=== PATIENT | male | born 1965 | race Caucasian/White ===

== ENCOUNTER 2018-01-15 08:20 | Emergency (ER) | payer BC ==
[~2018-01-15] VITALS: Ht 180.3 cm; Wt 102.3 kg
[2018-01-15 08:22] VITALS: BP 148/93
[2018-01-15] MEDS ORDERED: ondansetron 4mg rapidly disintigrating tab PO ONE (09:25)
[2018-01-15] MEDS ORDERED: diphenhydrAMINE 50 mg/ml inj IV ONE (09:25)
[2018-01-15] MEDS ORDERED: normal saline 1000ML IV soln IVB ONE (09:25)
[2018-01-15] MEDS ORDERED: gabapentin 300mg capsule PO ONE (09:25)
[2018-01-15 09:45] LABS: ANION GAP 12 (8-16); BLOOD UREA NITROGEN 10 MG/DL (7-18); BUN/CREATININE RATIO 10.2 (5.4-32.0); CALCIUM 8.7 MG/DL (8.5-10.1); CHLORIDE 101 MMOL/L (99-107); CREATININE 0.98 MG/DL (0.60-1.10); GLUCOSE 139 MG/DL (70-104); POTASSIUM 3.9 MMOL/L (3.5-5.1); SODIUM 139 MMOL/L (135-145); TOTAL CARBON DIOXIDE 25.9 MMOL/L (24-32); eGFR 80 ML/MIN
[2018-01-15] MEDS ORDERED: GABA-532 PO (10:05)
[2018-01-15] MEDS ORDERED: ONDA4TAB6 PO (10:05)
== END 2018-01-15 10:35 | disposition home or self-care (01) ==
LOC: ER 08:20
DX: F10.10 Alcohol abuse, uncomplicated (principal); R11.2 Nausea with vomiting, unspecified; R19.7 Diarrhea, unspecified; Z79.899 Other long term (current) drug therapy; Y90.9 Presence of alcohol in blood, level not specified
CPT/HCPCS: 36415; 80048; 96361; 96374; 99284; J1200; J7030

== ENCOUNTER 2018-08-07 17:19 | Emergency (ER) | payer BC ==
[~2018-08-07 17:19] MED LIST: GABA-532 PO; ONDA4TAB6 PO
== END 2018-08-07 19:36 | disposition left against medical advice (07) ==
LOC: ER 17:19
DX: F10.239 Alcohol dependence with withdrawal, unspecified (principal); Z53.21 Procedure and treatment not carried out due to patient leaving prior to being seen by health care provider

== ENCOUNTER 2019-03-09 21:21 | Emergency (ER) | payer BC ==
[~2019-03-09] VITALS: Ht 180.3 cm; Wt 93.0 kg
[2019-03-09 21:47] LABS: BASOPHILS % (AUTO) 0.1 % (0-1); EOSINOPHILS % (AUTO) 0 % (0-6); HEMATOCRIT 44.3 % (42.0-52.0); LYMPHOCYTES # (AUTO) 0.7 X10'3 (1.1-4.8); LYMPHOCYTES % (AUTO) 4.6 % (21-51); MEAN CORPUSCULAR HEMOGLOBIN 32.4 PG (27.0-31.0); MEAN CORPUSCULAR VOLUME 95.3 FL (78-98); MEAN PLATELET VOLUME 7.4 FL (7.4-10.4); MONOCYTES # (AUTO) 0.2 X10'3 (0-0.9); MONOCYTES % (AUTO) 1.5 % (2-12); NEUTROPHILS % (AUTO) 93.8 % (42-75); PLATELET COUNT 164 X10'3 (140-440); RED BLOOD COUNT 4.64 X10'6 (4.70-6.10); RED CELL DISTRIBUTION WIDTH 13.9 % (11.5-14.5); WHITE BLOOD COUNT 14.9 X10'3 (4.5-11.0)
[2019-03-09 21:57] LABS: ALANINE AMINOTRANSFERASE 60 U/L (12-78); ALBUMIN/GLOBULIN RATIO 1.1 (1.1-1.5); ALKALINE PHOSPHATASE 69 IU/L (46-116); ANION GAP 12 (8-16); ASPARTATE AMINO TRANSFERASE 49 U/L (10-37); BILIRUBIN,TOTAL 0.5 MG/DL (0.1-1.0); BLOOD UREA NITROGEN 12 MG/DL (7-18); CHLORIDE 102 MMOL/L (99-107); CREATININE 0.86 MG/DL (0.60-1.10); GLUCOSE 178 MG/DL (70-104); POTASSIUM 4.2 MMOL/L (3.5-5.1); SODIUM 139 MMOL/L (135-145); TOTAL PROTEIN 7.7 G/DL (6.4-8.2); eGFR > 90 ML/MIN
[2019-03-09 21:58] LABS: PARTIAL THROMBOPLASTIN TIME 26 SECONDS (22-32)
[2019-03-09 22:00] LABS: TROPONIN I < 0.04 NG/ML (0.0-0.05)
[2019-03-09 22:15] LABS: CLARITY,URINE CLEAR (Clear); COLOR,URINE YELLOW (Yellow); GLUCOSE, URINE 500 mg/dl (Neg); KETONES,URINE NEGATIVE (Neg); LEUKOCYTE ESTERASE ,URINE NEGATIVE (Neg); NITRITES, URINE NEGATIVE (Neg); OCCULT BLOOD,URINE NEGATIVE (Neg); PH,URINE 5.5 (4.8-8.0); PROTEIN,URINE NEGATIVE (Neg); UROBILINOGEN,URINE 0.2 E.U/dL (0.2-1.0)
[2019-03-09 22:17] LABS: UA COLLECTION TYPE CLN CATCH MIDSTREAM
--- NOTE | 2019-03-09 22:30 | NUR ---
PATIENT IS ASKING FOR WATER. PATIENT WAS EDUCATED ON STROKE PROTOCOL AND WHY HE IS CURRENTLY NPO
--- NOTE | 2019-03-09 22:32 | NUR ---
PATIENT CONTINUES TO ASK STAFF FOR WATER AND GETTING [employer]OP[employer] AGGRESSIVE WITH HIS REQUESTS.
[2019-03-09 22:41] LABS: URINE AMPHETAMINE SCREEN NEGATIVE (Neg); URINE BARBITUATE SCREEN NEGATIVE (Neg); URINE BENZODIAZEPINES SCREEN NEGATIVE (Neg); URINE CANNABINOID SCREEN POSITIVE (Neg); URINE COCAINE SCREEN NEGATIVE (Neg); URINE METHADONE SCREEN NEGATIVE (Neg); URINE OPIATE SCREEN NEGATIVE (Neg); URINE PHENCYCLIDINE SCREEN NEGATIVE (Neg)
[2019-03-09] MEDS ORDERED: HYDROcodone/acetaminophen 5mg/325mg tablet PO PRN (23:00)
[2019-03-09] MEDS ORDERED: magnesium hydroxide 30ml (MOM) UD suspension PO PRN (23:00)
[2019-03-09] MEDS ORDERED: acetaminophen 325mg tablet PO PRN (23:00)
[2019-03-09] MEDS ORDERED: ondansetron/PF 4mg/2ml inj IV PRN (23:00)
[2019-03-09] MEDS ORDERED: normal saline 1000ml 1,000 ML IV SCH (23:00)
[2019-03-09] MEDS ORDERED: mag hydrox/Alum hydrox/simeth 30ml oral suspension PO PRN (23:00)
[2019-03-09] MEDS ORDERED: morphine 2 MG/ML inj. syringe IV PRN ×2 (23:00)
[2019-03-09 23:05] LABS: ETHANOL 0.333 GM/DL (0.0-0.010)
[2019-03-09] MEDS ORDERED: propofol 10mg/ml 20ml vial IV ONE (23:20)
[2019-03-09 23:36] LABS: CHOL/HDL RATIO 3.4 (0.00-4.99); CHOLESTEROL 249 MG/DL (0-200); HDL CHOLESTEROL 74 MG/DL (35-60); LDL CHOLESTEROL 152 MG/DL (50-100); TRIGLYCERIDES 130 MG/DL (20-135)
[2019-03-10 00:32] VITALS: BP 153/96
[2019-03-10] MEDS ORDERED: enoxaparin 40mg/0.4ml syringe SUBCUT SCH (08:00)
[2019-03-10] MEDS ORDERED: aspirin 325mg tablet, delayed-release (Ecotrin) PO SCH (08:00)
== END 2019-03-10 00:26 | disposition home or self-care (01) ==
LOC: ER 21:21
DX: S43.005A Unspecified dislocation of left shoulder joint, initial encounter (principal); F10.10 Alcohol abuse, uncomplicated; X58.XXXA Exposure to other specified factors, initial encounter; Y93.01 Activity, walking, marching and hiking; Y92.89 Other specified places as the place of occurrence of the external cause; Y99.8 Other external cause status
CPT/HCPCS: 23650; 36415; 70450; 71045; 73020; 73060; 80053; 80061; 80305; 80320; 81003; 82948; 83036; 84484; 85025; 85610; 85651; 85730; 86885; 86900; 86901; 93005; 99152; 99285; J2704

== ENCOUNTER 2020-02-08 03:27 | Emergency (ER) | payer BC ==
[~2020-02-08] VITALS: Ht 180.3 cm; Wt 97.0 kg
[2020-02-08] MEDS ORDERED: ondansetron/PF 4mg/2ml inj IV ONE (03:40)
[2020-02-08] MEDS ORDERED: magnesium 2GM in 50ml NS 50 ML IV ONE (03:40)
[2020-02-08] MEDS ORDERED: phenobarbital inj 260 MG in normal saline 100ml IV soln 100 ML IV ONE (03:40)
[2020-02-08] MEDS ORDERED: normal saline 1000ML IV soln IVB ONE (03:40)
[2020-02-08] MEDS ORDERED: thiamine inj. 100 MG in normal saline 100ml IV soln 99 ML IV ONE (03:40)
[2020-02-08] MEDS ORDERED: famotidine/PF 10 mg/ml inj IV ONE (03:50)
[2020-02-08] MEDS ORDERED: pantoprazole 40 MG vial IV ONE (03:50)
[2020-02-08] MEDS ORDERED: thiamine inj. 100 MG in normal saline 100ml IV soln 100 ML IV ONE (04:10)
[2020-02-08 04:17] LABS: ALANINE AMINOTRANSFERASE 73 U/L (12-78); ALBUMIN 4.1 G/DL (3.4-5.0); ALBUMIN/GLOBULIN RATIO 1.1 (1.1-1.5); ALKALINE PHOSPHATASE 69 IU/L (46-116); ANION GAP 18 (8-16); BLOOD UREA NITROGEN 9 MG/DL (7-18); BUN/CREATININE RATIO 8.8 (5.4-32.0); CALCIUM 9.3 MG/DL (8.5-10.1); CHLORIDE 99 MMOL/L (99-107); CREATININE 1.02 MG/DL (0.60-1.10); ETHANOL 0.043 GM/DL (0.0-0.010); GLUCOSE 176 MG/DL (70-104); MAGNESIUM 1.9 MG/DL (1.5-2.4); SODIUM 138 MMOL/L (135-145); TOTAL CARBON DIOXIDE 21.2 MMOL/L (24-32); eGFR 76 ML/MIN
[2020-02-08 04:18] LABS: ASPARTATE AMINO TRANSFERASE 104 U/L (10-37); POTASSIUM 4.3 MMOL/L (3.5-5.1)
[2020-02-08 04:28] LABS: BASOPHILS % (AUTO) 0.4 % (0-1); EOSINOPHILS % (AUTO) 0.1 % (0-6); HEMATOCRIT 45.8 % (42.0-52.0); LYMPHOCYTES # (AUTO) 1.5 X10'3 (1.1-4.8); LYMPHOCYTES % (AUTO) 19.1 % (21-51); MEAN CORPUSCULAR HEMOGLOBIN 33.7 PG (27.0-31.0); MEAN CORPUSCULAR HGB CONC 34.8 g/dL (33.0-36.5); MEAN CORPUSCULAR VOLUME 96.8 FL (78-98); MEAN PLATELET VOLUME 8.4 FL (7.4-10.4); MONOCYTES # (AUTO) 0.7 X10'3 (0-0.9); MONOCYTES % (AUTO) 8.8 % (2-12); NEUTROPHILS # (AUTO) 5.6 X10'3 (1.8-7.7); NEUTROPHILS % (AUTO) 71.6 % (42-75); PLATELET COUNT 118 X10'3 (140-440); RED BLOOD COUNT 4.73 X10'6 (4.70-6.10); RED CELL DISTRIBUTION WIDTH 15.8 % (11.5-14.5); WHITE BLOOD COUNT 7.9 X10'3 (4.5-11.0)
[2020-02-08] MEDS ORDERED: phenobarbital inj 130 MG in normal saline 100ml IV soln 100 ML IV ONE (04:35)
[2020-02-08] MEDS ORDERED: ONDA4TAB6 PO ×2 (04:35→05:39)
[2020-02-08 05:30] VITALS: BP 144/85
== END 2020-02-08 06:20 | disposition home or self-care (01) ==
LOC: ER 03:28
DX: F10.220 Alcohol dependence with intoxication, uncomplicated (principal); K29.20 Alcoholic gastritis without bleeding; R73.9 Hyperglycemia, unspecified; R74.0 Nonspecific elevation of levels of transaminase and lactic acid dehydrogenase [LDH]; R06.02 Shortness of breath; R10.13 Epigastric pain; R11.2 Nausea with vomiting, unspecified; Z79.899 Other long term (current) drug therapy; Y90.9 Presence of alcohol in blood, level not specified
CPT/HCPCS: 36415; 80053; 80320; 83735; 85025; 93005; 96361; 96365; 96368; 96375; 96376; 99284; C9113; J2405; J3411; J3475; J3490; J7030

== ENCOUNTER 2020-08-19 06:17 | Emergency (ER) | payer BC ==
[~2020-08-19] VITALS: Ht 180.3 cm; Wt 100.0 kg
[2020-08-19] MEDS: pantoprazole 40 MG vial IV ONE (06:40)
[2020-08-19] MEDS: ondansetron/PF 4mg/2ml inj IV ONE (06:40)
[2020-08-19] MEDS: normal saline 1000ML IV soln IVB ONE (06:40)
[2020-08-19 06:42] LABS: BASOPHILS % (AUTO) 0.4 % (0-1); EOSINOPHILS % (AUTO) 0 % (0-6); HEMATOCRIT 45.5 % (42.0-52.0); HEMOGLOBIN 15.4 g/dl (14.0-17.9); LYMPHOCYTES % (AUTO) 11.6 % (21-51); MEAN CORPUSCULAR HEMOGLOBIN 31.5 PG (27.0-31.0); MEAN CORPUSCULAR HGB CONC 33.8 g/dL (33.0-36.5); MEAN CORPUSCULAR VOLUME 93.1 FL (78-98); MEAN PLATELET VOLUME 7.3 FL (7.4-10.4); MONOCYTES # (AUTO) 0.4 X10'3 (0-0.9); MONOCYTES % (AUTO) 4.6 % (2-12); NEUTROPHILS # (AUTO) 7.4 X10'3 (1.8-7.7); NEUTROPHILS % (AUTO) 83.4 % (42-75); PLATELET COUNT 244 X10'3 (140-440); RED BLOOD COUNT 4.89 X10'6 (4.70-6.10); RED CELL DISTRIBUTION WIDTH 14.4 % (11.5-14.5); WHITE BLOOD COUNT 8.9 X10'3 (4.5-11.0)
[2020-08-19 06:54] LABS: ALANINE AMINOTRANSFERASE 48 U/L (12-78); ALBUMIN 4.1 G/DL (3.4-5.0); ALBUMIN/GLOBULIN RATIO 1.1 (1.1-1.5); ALKALINE PHOSPHATASE 97 IU/L (46-116); ANION GAP 13 (8-16); ASPARTATE AMINO TRANSFERASE 35 U/L (10-37); BILIRUBIN,TOTAL 0.9 MG/DL (0.1-1.0); BLOOD UREA NITROGEN 10 MG/DL (7-18); CALCIUM 8.8 MG/DL (8.5-10.1); CHLORIDE 102 MMOL/L (99-107); GLUCOSE 212 MG/DL (70-104); LIPASE 96 U/L (73-393); MAGNESIUM 1.6 MG/DL (1.5-2.4); POTASSIUM 3.8 MMOL/L (3.5-5.1); SODIUM 140 MMOL/L (135-145); TOTAL CARBON DIOXIDE 25.4 MMOL/L (24-32); TOTAL PROTEIN 7.8 G/DL (6.4-8.2); eGFR 77 ML/MIN
[2020-08-19] MEDS: gabapentin 300mg capsule PO ONE (07:17)
[2020-08-19] MEDS ORDERED: GABA300C PO (07:28)
[2020-08-19 08:00] VITALS: BP 164/103
== END 2020-08-19 08:02 | disposition home or self-care (01) ==
LOC: ER 06:17
DX: F10.139 Alcohol abuse with withdrawal, unspecified (principal); E16.2 Hypoglycemia, unspecified; R10.10 Upper abdominal pain, unspecified; Z98.890 Other specified postprocedural states; Z79.899 Other long term (current) drug therapy; Y90.9 Presence of alcohol in blood, level not specified
CPT/HCPCS: 36415; 80053; 83690; 83735; 85025; 85610; 96361; 96374; 96375; 99284; C9113; J2405; J7030

== ENCOUNTER 2020-09-23 13:15 | Inpatient (IN) | payer BC ==
[~2020-09-23] VITALS: Ht 177.8 cm; Wt 92.4 kg
[~2020-09-23 13:15] MED LIST changes: +GABA300C PO
[2020-09-23] MEDS ORDERED: LORazepam 2 mg/ml vial IV ONE (13:35)
[2020-09-23] MEDS ORDERED: normal saline 1000ML IV soln IV ONE (13:35)
[2020-09-23] MEDS ORDERED: folic acid 1mg/0.2ml inj IV ONE (13:35)
[2020-09-23] MEDS ORDERED: thiamine 100mg/ml 2ml inj. IV ONE (13:35)
[2020-09-23] MEDS ORDERED: magnesium 2GM in 50ml NS 50 ML IV ONE (13:35)
[2020-09-23 14:21] LABS: BASOPHILS % (AUTO) 0.2 % (0-1); EOSINOPHILS % (AUTO) 0 % (0-6); HEMOGLOBIN 16.7 g/dl (14.0-17.9); LYMPHOCYTES # (AUTO) 0.9 X10'3 (1.1-4.8); LYMPHOCYTES % (AUTO) 4.5 % (21-51); MEAN CORPUSCULAR HEMOGLOBIN 30.9 PG (27.0-31.0); MEAN CORPUSCULAR HGB CONC 33.5 g/dL (33.0-36.5); MEAN CORPUSCULAR VOLUME 92.3 FL (78-98); MEAN PLATELET VOLUME 7.8 FL (7.4-10.4); MONOCYTES # (AUTO) 0.5 X10'3 (0-0.9); MONOCYTES % (AUTO) 2.5 % (2-12); NEUTROPHILS # (AUTO) 18.3 X10'3 (1.8-7.7); NEUTROPHILS % (AUTO) 92.8 % (42-75); PLATELET COUNT 275 X10'3 (140-440); RED BLOOD COUNT 5.41 X10'6 (4.70-6.10); RED CELL DISTRIBUTION WIDTH 14.1 % (11.5-14.5); WHITE BLOOD COUNT 19.7 X10'3 (4.5-11.0)
[2020-09-23 14:33] LABS: ALANINE AMINOTRANSFERASE 75 U/L (12-78); ALBUMIN 4.4 G/DL (3.4-5.0); ALBUMIN/GLOBULIN RATIO 1.1 (1.1-1.5); ALKALINE PHOSPHATASE 107 IU/L (46-116); ANION GAP 29 (8-16); ASPARTATE AMINO TRANSFERASE 47 U/L (10-37); BILIRUBIN,TOTAL 1.1 MG/DL (0.1-1.0); BLOOD UREA NITROGEN 16 MG/DL (7-18); BUN/CREATININE RATIO 10.3 (5.4-32.0); CHLORIDE 98 MMOL/L (99-107); CREATININE 1.55 MG/DL (0.60-1.10); ETHANOL < 0.010 GM/DL (0.0-0.010); GLUCOSE 247 MG/DL (70-104); POTASSIUM 3.1 MMOL/L (3.5-5.1); SODIUM 140 MMOL/L (135-145); TOTAL PROTEIN 8.4 G/DL (6.4-8.2); eGFR 47 ML/MIN
[2020-09-23 14:34] LABS: TOTAL CARBON DIOXIDE 13.3 MMOL/L (24-32)
[2020-09-23] MEDS ORDERED: potassium Cl 10 mEq/100mL bag IV ONE (14:40)
[2020-09-23] MEDS ORDERED: CefTRIAXone 2gm/D5W 50ml BAG 50 ML IV ONE (14:50)
[2020-09-23 14:58] LABS: LIPASE 72 U/L (73-393)
[2020-09-23] MEDS ORDERED: famotidine/PF 10 mg/ml inj IV ONE (15:45)
[2020-09-23] MEDS ORDERED: cloNIDine 0.1 mg tablet PO ONE ×2 (15:55→16:15)
[2020-09-23] MEDS ORDERED: NO HOME MEDS (16:00)
[2020-09-23] MEDS ORDERED: metoclopramide 5 mg/ml inj IV ONE (16:15)
[2020-09-23] MEDS ORDERED: magnesium hydroxide 30ml (MOM) UD suspension PO PRN (16:40)
[2020-09-23] MEDS ORDERED: acetaminophen 325mg tablet PO PRN ×2 (16:40)
[2020-09-23] MEDS ORDERED: morphine 4 MG/ML inj SYRINge IV PRN (16:40)
[2020-09-23] MEDS ORDERED: ondansetron/PF 4mg/2ml inj IV PRN (16:40)
[2020-09-23] MEDS ORDERED: thiamine inj. 100 MG in normal saline 100ml IV soln 100 ML IV ONE (16:50)
[2020-09-23] MEDS: normal saline 1000ml 1,000 ML IV SCH (18:58)
--- NOTE | 2020-09-23 19:28 | NUR ---
Pt awake and given ice chips as requested. Pt updated with plan of care and is awaiting in patient room assignment.
[2020-09-23 20:00] VITALS: BP 141/91
[2020-09-23 21:00] VITALS: BP 170/101
[2020-09-23] MEDS: enoxaparin 40mg/0.4ml syringe SQ SCH (22:08)
[2020-09-23 22:23] LABS: BASOPHILS % (AUTO) 0.1 % (0-1); EOSINOPHILS % (AUTO) 0 % (0-6); HEMATOCRIT 41.7 % (42.0-52.0); HEMOGLOBIN 14.1 g/dl (14.0-17.9); LYMPHOCYTES # (AUTO) 0.8 X10'3 (1.1-4.8); LYMPHOCYTES % (AUTO) 4.1 % (21-51); MEAN CORPUSCULAR HEMOGLOBIN 30.9 PG (27.0-31.0); MEAN CORPUSCULAR HGB CONC 33.7 g/dL (33.0-36.5); MEAN CORPUSCULAR VOLUME 91.6 FL (78-98); MEAN PLATELET VOLUME 8.1 FL (7.4-10.4); MONOCYTES # (AUTO) 0.6 X10'3 (0-0.9); MONOCYTES % (AUTO) 3.3 % (2-12); NEUTROPHILS # (AUTO) 17.3 X10'3 (1.8-7.7); NEUTROPHILS % (AUTO) 92.5 % (42-75); PLATELET COUNT 174 X10'3 (140-440); RED BLOOD COUNT 4.56 X10'6 (4.70-6.10); RED CELL DISTRIBUTION WIDTH 13.9 % (11.5-14.5); WHITE BLOOD COUNT 18.7 X10'3 (4.5-11.0)
[2020-09-23 22:37] LABS: ALBUMIN 3.4 G/DL (3.4-5.0); ANION GAP 11 (8-16); BLOOD UREA NITROGEN 13 MG/DL (7-18); BUN/CREATININE RATIO 15.3 (5.4-32.0); CALCIUM 7.6 MG/DL (8.5-10.1); CHLORIDE 103 MMOL/L (99-107); CREATININE 0.85 MG/DL (0.60-1.10); GLUCOSE 141 MG/DL (70-104); POTASSIUM 3.7 MMOL/L (3.5-5.1); SODIUM 137 MMOL/L (135-145); TOTAL CARBON DIOXIDE 22.7 MMOL/L (24-32); eGFR > 90 ML/MIN
[2020-09-23 23:00] VITALS: BP 152/88
[2020-09-23] MEDS: LORazepam 2 mg/ml vial IV PRN (23:00)
[2020-09-23] MEDS: morphine 2 MG/ML inj. syringe IV PRN (23:04)
[2020-09-24] VITALS (18 sets, daily range): BP systolic 143–171; BP diastolic 84–104
[2020-09-24] MEDS: normal saline 1000ml 1,000 ML IV SCH (02:45)
[2020-09-24] MEDS: morphine 2 MG/ML inj. syringe IV PRN ×3 (03:44→21:40)
[2020-09-24 06:06] LABS: BASOPHILS % (AUTO) 0.1 % (0-1); EOSINOPHILS % (AUTO) 0 % (0-6); HEMATOCRIT 42.3 % (42.0-52.0); HEMOGLOBIN 14.3 g/dl (14.0-17.9); LYMPHOCYTES # (AUTO) 1.5 X10'3 (1.1-4.8); LYMPHOCYTES % (AUTO) 8.3 % (21-51); MEAN CORPUSCULAR HEMOGLOBIN 31.2 PG (27.0-31.0); MEAN CORPUSCULAR HGB CONC 33.9 g/dL (33.0-36.5); MEAN CORPUSCULAR VOLUME 92.1 FL (78-98); MEAN PLATELET VOLUME 7.9 FL (7.4-10.4); MONOCYTES # (AUTO) 1.1 X10'3 (0-0.9); NEUTROPHILS # (AUTO) 15.6 X10'3 (1.8-7.7); NEUTROPHILS % (AUTO) 85.6 % (42-75); PLATELET COUNT 169 X10'3 (140-440); RED BLOOD COUNT 4.59 X10'6 (4.70-6.10); RED CELL DISTRIBUTION WIDTH 14.2 % (11.5-14.5); WHITE BLOOD COUNT 18.3 X10'3 (4.5-11.0)
[2020-09-24 06:16] LABS: ALANINE AMINOTRANSFERASE 56 U/L (12-78); ALBUMIN 3.6 G/DL (3.4-5.0); ALBUMIN/GLOBULIN RATIO 1.1 (1.1-1.5); ALKALINE PHOSPHATASE 95 IU/L (46-116); ANION GAP 7 (8-16); ASPARTATE AMINO TRANSFERASE 34 U/L (10-37); BILIRUBIN,TOTAL 1.5 MG/DL (0.1-1.0); BLOOD UREA NITROGEN 11 MG/DL (7-18); BUN/CREATININE RATIO 15.1 (5.4-32.0); CALCIUM 8.2 MG/DL (8.5-10.1); CHLORIDE 105 MMOL/L (99-107); CREATININE 0.73 MG/DL (0.60-1.10); GLUCOSE 122 MG/DL (70-104); POTASSIUM 3.4 MMOL/L (3.5-5.1); SODIUM 139 MMOL/L (135-145); TOTAL CARBON DIOXIDE 26.7 MMOL/L (24-32); TOTAL PROTEIN 6.9 G/DL (6.4-8.2); eGFR > 90 ML/MIN
[2020-09-24 06:19] LABS: AMYLASE 49 U/L (25-115); LIPASE 59 U/L (73-393); MAGNESIUM 2.2 MG/DL (1.5-2.4); PHOSPHORUS 2.9 MG/DL (2.3-4.5); TROPONIN I < 0.04 NG/ML (0.0-0.05)
[2020-09-24] MEDS ORDERED: thiamine inj. 100 MG in normal saline 100ml IV soln 100 ML IV SCH (08:00)
[2020-09-24] MEDS ORDERED: folic acid inj. 2 MG, thiamine inj. 100 MG, MVI, adult No.4 with vit. K 10 ML in dextro... IV SCH ×4 (08:00)
[2020-09-24] MEDS ORDERED: pantoprazole 40 MG vial IV SCH (08:00)
[2020-09-24] MEDS ORDERED: folic acid 1mg/0.2ml inj IV SCH (08:00)
[2020-09-24] MEDS ORDERED: MULTIVIT-MIN/FERROUS GLUCONATE 9 MG/15 ML LIQUID PO SCH (08:00)
[2020-09-24] MEDS ORDERED: metoprolol tartrate 1mg/ml inj IV PRN (11:10)
--- NOTE | 2020-09-24 11:54 | NUR ---
Received patient report from DARIA Licea from [facility]. Awaiting patient arrival to room 3029W.
[2020-09-24] MEDS ORDERED: magnesium 2GM in 50ml NS 50 ML IV PRN (11:55)
[2020-09-24] MEDS ORDERED: potassium Cl 40MEQ/1/2NS 520ml 520 ML IV PRN ×2 (11:55)
[2020-09-24] MEDS ORDERED: potassium Cl 20 mEq SR tablet PO PRN (11:55)
[2020-09-24] MEDS ORDERED: magnesium 4gm in 100ml NS 100 ML IV PRN (11:55)
[2020-09-24] MEDS ORDERED: magnesium Cl slow-release 64mg tablet PO PRN (11:55)
[2020-09-24] MEDS: potassium Cl 20 mEq SR tablet PO PRN ×3 (12:14→21:39)
--- NOTE | 2020-09-24 13:35 | NUR ---
Patient arrived to room 3025B via wheelchair. Patient ambulated from the wheelchair to the bed. Vital signs are temp. 98.4F, HR 104, BP 145/102, 97% on room air, RR 17, pain 0/10. Bed locked and lowered, nonskid socks on, call light in reach and in no acute distress. Will continue to monitor.
--- NOTE | 2020-09-24 13:41 | NUR ---
Pt transferred to 3025B at 1335. Report given to Nancy HUFF. Belongings list completed in chart. VSS.
--- NOTE | 2020-09-24 17:57 | NUR ---
[place] documentation: I have reviewed and agree with all interventions, assessments performed and documented by DARIA Slade.
--- NOTE | 2020-09-24 17:58 | NUR ---
[place] Medication Administration: For this medication-pass time frame, all medication were reviewed, dispensed, administered and documented per hospital policy by DARIA Slade.
--- NOTE | 2020-09-24 18:01 | NUR ---
B/P 172/104 left upper extremity, 160/103 right upper extremity, Metoprolol administered IV, B/P recheck 150/93 HR 91, patient tolerated well.
--- NOTE | 2020-09-24 18:18 | NUR ---
Problems reprioritized. Patient report given, questions answered & plan of care reviewed with DARIA Wolff. Patient stable at transfer of care.
--- NOTE | 2020-09-24 19:17 | NUR ---
Patient in room PCU 3025. I have received report from fracisco and had the opportunity to ask questions and assume patient care.
[2020-09-24] MEDS: K and/or MAG REPLACEMENT MC SCH (20:00)
[2020-09-24] MEDS: enoxaparin 40mg/0.4ml syringe SQ SCH (21:37)
[2020-09-24] MEDS: LORazepam 2 mg/ml vial IV PRN (21:39)
[2020-09-25 01:57] VITALS: BP 125/98
[2020-09-25 02:34] LABS: CLARITY,URINE CLEAR (Clear); COLOR,URINE YELLOW (Yellow); GLUCOSE, URINE NEGATIVE (Neg); KETONES,URINE NEGATIVE (Neg); LEUKOCYTE ESTERASE ,URINE NEGATIVE (Neg); NITRITES, URINE NEGATIVE (Neg); OCCULT BLOOD,URINE NEGATIVE (Neg); PROTEIN,URINE NEGATIVE (Neg); UROBILINOGEN,URINE 0.2 E.U/dL (0.2-1.0)
[2020-09-25] MEDS: LORazepam 2 mg/ml vial IV PRN (02:37)
[2020-09-25 02:43] LABS: UA COLLECTION TYPE CLN CATCH MIDSTREAM
[2020-09-25 02:45] LABS: URINE AMPHETAMINE SCREEN NEGATIVE (Neg); URINE BARBITUATE SCREEN NEGATIVE (Neg); URINE BENZODIAZEPINES SCREEN NEGATIVE (Neg); URINE CANNABINOID SCREEN POSITIVE (Neg); URINE COCAINE SCREEN NEGATIVE (Neg); URINE METHADONE SCREEN NEGATIVE (Neg); URINE OPIATE SCREEN POSITIVE (Neg); URINE PHENCYCLIDINE SCREEN NEGATIVE (Neg)
[2020-09-25 06:00] VITALS: BP 169/111
[2020-09-25 06:06] LABS: BASOPHILS % (AUTO) 0.2 % (0-1); EOSINOPHILS % (AUTO) 0.1 % (0-6); HEMOGLOBIN 15.3 g/dl (14.0-17.9); LYMPHOCYTES # (AUTO) 1.8 X10'3 (1.1-4.8); MEAN CORPUSCULAR HEMOGLOBIN 31.5 PG (27.0-31.0); MEAN CORPUSCULAR HGB CONC 34.1 g/dL (33.0-36.5); MEAN CORPUSCULAR VOLUME 92.5 FL (78-98); MEAN PLATELET VOLUME 8.1 FL (7.4-10.4); MONOCYTES # (AUTO) 0.6 X10'3 (0-0.9); MONOCYTES % (AUTO) 6.4 % (2-12); NEUTROPHILS # (AUTO) 7.1 X10'3 (1.8-7.7); NEUTROPHILS % (AUTO) 74.3 % (42-75); PLATELET COUNT 142 X10'3 (140-440); RED BLOOD COUNT 4.87 X10'6 (4.70-6.10); RED CELL DISTRIBUTION WIDTH 14.2 % (11.5-14.5); WHITE BLOOD COUNT 9.5 X10'3 (4.5-11.0)
--- NOTE | 2020-09-25 06:07 | NUR ---
Problems reprioritized. Patient report given, questions answered & plan of care reviewed with
[2020-09-25 06:19] LABS: ALBUMIN 3.5 G/DL (3.4-5.0); ANION GAP 10 (8-16); BLOOD UREA NITROGEN 11 MG/DL (7-18); BUN/CREATININE RATIO 14.7 (5.4-32.0); CALCIUM 8.7 MG/DL (8.5-10.1); CHLORIDE 105 MMOL/L (99-107); CREATININE 0.75 MG/DL (0.60-1.10); GLUCOSE 127 MG/DL (70-104); MAGNESIUM 2.3 MG/DL (1.5-2.4); POTASSIUM 3.7 MMOL/L (3.5-5.1); SODIUM 140 MMOL/L (135-145); TOTAL CARBON DIOXIDE 25.4 MMOL/L (24-32); eGFR > 90 ML/MIN
[2020-09-25] MEDS ORDERED: pantoprazole 40mg Tablet.DR PO SCH (07:30)
[2020-09-25] MEDS ORDERED: thiamine 100mg tablet PO SCH (08:00)
[2020-09-25] MEDS: K and/or MAG REPLACEMENT MC SCH (08:00)
[2020-09-25] MEDS ORDERED: multivitamins, therapeutics tablet PO SCH (08:00)
[2020-09-25] MEDS ORDERED: folic acid 1mg tablet PO SCH (08:00)
== END 2020-09-25 10:59 | disposition home or self-care (01) | DRG 897 ==
LOC: ER 13:15 → ED HOLD 16:37 → CICU 2S 20:19 → PCU 3S 09-24 13:37
PROVIDERS: ADMIT Surgery; ATTEND Surgery
DX: F10.239 Alcohol dependence with withdrawal, unspecified (principal); E87.2 Acidosis; E86.9 Volume depletion, unspecified; D72.829 Elevated white blood cell count, unspecified; E87.6 Hypokalemia; F12.90 Cannabis use, unspecified, uncomplicated; I10 Essential (primary) hypertension; E27.9 Disorder of adrenal gland, unspecified; Y90.9 Presence of alcohol in blood, level not specified; Z79.899 Other long term (current) drug therapy
CPT/HCPCS: 36415; 71045; 74176; 80048; 80053; 80305; 80320; 81003; 82150; 83605; 83690; 83735; 84100; 84484; 85025; 85610; 87040; 87081; 93005; 96365; 96368; 96375; 99291; C9113; G0378; J0696; J1650; J2060; J2270; J3411; J3475; J3480; J3490; J7030